=== PATIENT | male | born 1960 | race Caucasian/White ===

== ENCOUNTER 2021-01-17 12:27 | Emergency (ER) | payer MEDICARE ==
--- NOTE | 2021-01-17 12:40 | ERPHSYRPT ---
- History of Present Illness Time Seen by Provider: 01/17/21 12:35 Historian: patient Exam Limitations: no limitations Patient Subjective Stated Complaint: Pt states that he fell off of a ladder yesterday and injured his right ankle and today he feels clammy and fatigued Triage Nursing Assessment: Pt brought to the ER by his , right ankle bru ising to the lateral side, vitals wnl, denies chest pain, denies N&V, pulses and cap refill normal, doesn't appear to be in any distress Physician History: Patient is a 60-year-old male presents to our ED for evaluation of not feeling well. Patient states that he feels clammy and fatigued. Patient has a history of 2 cardiac stents placed in 2013 per patient. Patient denies chest pain. No nausea or vomiting. No diaphoresis. Patient is in no distress. Patient adds that his left ankle is tender. Patient fell off of his ladder yesterday. He was approximately 4 to 6 feet up on his ladder. Patient states he feels comfortable at this time. . Tramadol at 7 AM and again at 10:30 AM. Patient has been taking all medications as prescribed. He voices no other complaints or concerns at this time. Timing/Duration: today Activities at Onset: none Quality: other Location: other (Patient denies chest pain.) Chest Pain Radiation: no radiation Severity of Pain-Max: moderate Severity of Pain-Current: mild Modifying Factors: Improves With: nothing Associated Symptoms: No abdominal pain, No dizziness, No edema Nitro Today/Relief: no nitro taken today Aspirin Treatment Today: no aspirin today Allergies/Adverse Reactions: No Known Drug Allergies Allergy (Verified 01/17/21 12:38) Home Medications: Amitriptyline HCl 25 mg [Elavil 25 mg] 25 mg PO HS 10/17/12 [History] Celecoxib [Celebrex] 200 mg PO DAILY 10/17/12 [History] Albuterol 2.5 mg/3 ml Neb [Proventil 2.5 mg/3 ml Neb] 2 inh PO BID 01/17/21 [History] Albuterol Sulfate [Albuterol Sulfate Hfa] 2 inh PO BID 01/17/21 [History] Aspirin [Aspirin EC] 81 mg PO DAILY 01/17/21 [History] Budesonide/Formoterol Fumarate [Symbicort 160-4.5 Mcg Inhaler] 2 inh PO BID [History] Furosemide 20 mg [Lasix 20 mg] 20 mg PO DAILY 01/17/21 [History] Metoprolol Succinate 12.5 mg PO DAILY 01/17/21 [History] Nitroglycerin 0.4 mg Tablet [Nitrostat 0.4 MG Tablet] 0.4 mg SL UD PRN 01/17/21 [History] Ranolazine 500 MG [Ranexa 500 MG] 500 mg PO BID 01/17/21 [History] Rosuvastatin Calcium [Crestor] 20 mg PO DAILY 01/17/21 [History] Tiotropium [place] [Spiriva Respimat] 2 inh PO DAILY 01/17/21 [History] Hx Tetanus, Diphtheria Vaccination/Date Given: Yes (2 YEARS) Hx Influenza Vaccination/Date Given: Yes Hx Pneumococcal Vaccination/Date Given: Yes Travel Risk - International Travel Have you traveled outside of the country in past 3 weeks: No - Coronavirus Screening Are you exhibiting any of the following symptoms?: No Close contact with a COVID-19 positive Pt in past 14-21 Days: No - Vaccine Status Have you recieved a Covid-19 vaccination: No - Review of Systems Constitutional: No Symptoms, No Fever, No Chills Eyes: No Symptoms Ears, Nose, & Throat: No Symptoms Respiratory: No Symptoms, No Cough, No Dyspnea Cardiac: No Symptoms, No Chest Pain, No Edema, No Syncope Abdominal/Gastrointestinal: No Symptoms, No Abdominal Pain, No Nausea, No Vomiting, No Diarrhea Genitourinary Symptoms: No Symptoms, No Dysuria Musculoskeletal: No Symptoms, No Back Pain, No Neck Pain Skin: No Symptoms, No Rash Neurological: No Symptoms, No Dizziness, No Focal Weakness, No Sensory Changes Psychological: No Symptoms Endocrine: No Symptoms Hematologic/Lymphatic: No Symptoms Immunological/Allergic: No Symptoms All Other Systems: Reviewed and Negative - Past Medical History Pertinent Past Medical History: Yes Neurological History: Seizures ENT History: No Pertinent History Cardiac History: High Cholesterol Respiratory History: Bronchitis Endocrine Medical History: No Pertinent History Musculoskeletal History: Fractures, Rheumatoid Arthritis GI Medical History: Hernia History: Other Psycho-Social History: No Pertinent History Male Reproductive Disorders: No Pertinent History Other Medical History: hx of kidney stones - Past Surgical History Past Surgical History: Yes Neuro Surgical History: No Pertinent History Cardiac: No Pertinent History Respiratory: No Pertinent History Gastrointestinal: Hernia Repair Genitourinary: No Pertinent History Musculoskeletal: Orthopedic Surgery Male Surgical History: No Pertinent History Other Surgical History: KNEE SURGERY, ROTOTR CUFF X4. - Social History Smoking Status: Former smoker How long have you smoked: 30 years Exposure to second hand smoke: No Drug Use: none Patient Lives Alone: No - Nursing Vital Signs Nursing Vital Signs: Initial Vital Signs Temperature 96.3 F 01/17/21 12:28 Pulse Rate 74 01/17/21 12:28 Blood Pressure 115/76 01/17/21 12:28 O2 Sat by Pulse Oximetry 97 01/17/21 12:28 Pain Scale Pain Intensity 7 - Physical Exam General Appearance: no apparent distress, alert Eye Exam: PERRL/EOMI, eyes nml inspection Ears, Nose, Throat Exam: normal ENT inspection, moist mucous membranes Neck Exam: normal inspection, non-tender, supple, full range of motion Respiratory Exam: normal breath sounds, lungs clear, No respiratory distress Cardiovascular Exam: regular rate/rhythm, normal heart sounds Gastrointestinal/Abdomen Exam: soft, No tenderness, No mass Back Exam: normal inspection, No CVA tenderness, No vertebral tenderness Extremity Exam: other (Right ankle is swollen circumferentially. It is tender primarily at the medial aspect. Cap refill less than 2 seconds. PT DP pulse palpable. Compartments are soft. No knee hip or back pain. No other injuries reported.) Neurologic Exam: alert, oriented x 3, cooperative, normal mood/affect, sensation nml, No motor deficits Skin Exam: normal color, warm, dry Lymphatic Exam: adenopathy SpO2 Interpretation: normal SpO2: 97 O2 Delivery: Room Air - Course Nursing assessment & vital signs reviewed: Yes EKG Interpreted by Me: RATE (68), Sinus Rhythm, NORMAL AXIS, NORMAL INTERVALS - Radiology Exams Ankle X-ray Interpretation: Teleradiologist Report (Right ankle demonstrates nondisplaced lateral malleolus tip avulsion fracture with marked soft tissue swelling. Incidental tiny heel spur no other bony articular or soft tissue abnormalities.) Chest X-ray Interpretation: Teleradiologist Report (Clear lungs. Hyperinflated. Inc idental calcified granuloma. Borderline cardiomegaly. Bony thorax intact with mild double curvature scoliosis. Nonacute chest with chronic features.) Ordered Tests: Active Orders 24 hr Category Date Time Status Chemist Steroids STAT Care 01/17/21 12:43 Active Cold Application STAT Care 01/17/21 12:44 Active EKG-ER Only STAT Care 01/17/21 12:36 Active IV Insertion STAT Care 01/17/21 12:36 Active ANKLE (3 VIEWS) Stat Exams 01/17/21 12:46 Completed CHEST 1 VIEW (PORTABLE) Stat Exams 01/17/21 12:37 Completed CBC W DIFF Stat Lab 01/17/21 12:45 Completed CMP Stat Lab 01/17/21 12:45 Completed TROPONIN Q3H Lab 01/17/21 12:45 Completed TROPONIN Q3H Lab 01/17/21 15:20 Completed TROPONIN Q3H Lab 01/17/21 18:45 Ordered TROPONIN Q3H Lab 01/17/21 21:45 Ordered TROPONIN Q3H Lab 01/18/21 00:45 Ordered Urine Triage Profile Stat Lab 01/17/21 14:13 Completed Medication Summary Discontinued Medications Generic Name Dose Route Start Last Admin Trade Name Freq PRN Reason Stop Dose Admin Sodium Chloride 1,000 mls @ 999 mls/hr 01/17/21 14:02 01/17/21 15:10 Sodium Chloride 0.9% 1000 Ml IV 01/17/21 15:02 Infused .Q1H1M STA Infusion Sodium Chloride Confirm 01/17/21 14:04 Sodium Chloride 0.9% 1000 Ml Administered 01/17/21 14:05 Dose 1,000 mls @ ud .ROUTE .STK-MED ONE Ketorolac Tromethamine 30 mg 01/17/21 16:14 01/17/21 16:21 Toradol 30 Mg Injection IM 01/17/21 16:15 30 mg STAT ONE Administration Ketorolac Tromethamine Confirm 01/17/21 16:18 Toradol 30 Mg Injection Administered 01/17/21 16:19 Dose 30 mg .ROUTE .STK-MED ONE Lab/Rad Data: Laboratory Result Diagrams 01/17/21 12:45 01/17/21 12:45 Laboratory Results 01/17/21 01/17/21 01/17/21 Range/Units 15:20 14:13 12:45 WBC (4.0-10.5) K/mm3 RBC (4.1-5.6) M/mm3 Hgb (12.5-18.0) gm/dl Hct (42-50) % MCV (78-100) fl MCH (26-32) pg MCHC (32-36) g/dl RDW (11.5-14.0) % Plt Count (150-450) K/mm3 MPV (7.5-11.0) fl Gran % (36.0-66.0) % Eos # (Auto) (0-0.5) Absolute Lymphs (auto) (1.0-4.6) Absolute Monos (auto) (0.0-1.3) Lymphocytes % (24.0-44.0) % Monocytes % (0.0-12.0) % Eosinophils % (0.00-5.0) % Basophils % (0.0-0.4) % Absolute Granulocytes (1.4-6.9) Basophils # (0-0.4) Sodium (137-145) mmol/L Potassium (3.5-5.1) mmol/L Chloride (98-107) mmol/L Carbon Dioxide (22-30) mmol/L Anion Gap (5-15) MEQ/L BUN (9-20) mg/dL Creatinine (0.66-1.25) mg/dL Estimated GFR ML/MIN Glucose (74-106) mg/dL Calcium (8.4-10.2) mg/dL Total Bilirubin (0.2-1.3) mg/dL AST (17-59) U/L ALT (0-50) U/L Alkaline Phosphatase (38-126) U/L Troponin I < 0.012 < 0.012 (0.000-0.034) ng/mL Serum Total Protein (6.3-8.2) g/dL Albumin (3.5-5.0) g/dL Urine Opiates Level NEGATIVE (NEGATIVE) Ur Methadone NEGATIVE (NEGATIVE) Urine Barbiturates NEGATIVE (NEGATIVE) Ur Phencyclidine (PCP) NEGATIVE (NEGATIVE) Urine Amphetamine NEGATIVE (NEGATIVE) U Benzodiazepine Level NEGATIVE (NEGATIVE) Urine Cocaine NEGATIVE (NEGATIVE) Urine Marijuana (THC) NEGATIVE (NEGATIVE) 01/17/21 01/17/21 Range/Units 12:45 12:45 WBC 9.3 (4.0-10.5) K/mm3 RBC 4.55 (4.1-5.6) M/mm3 Hgb 14.7 (12.5-18.0) gm/dl Hct 44.6 (42-50) % MCV 98.0 (78-100) fl MCH 32.3 H (26-32) pg MCHC 33.0 (32-36) g/dl RDW 12.3 (11.5-14.0) % Plt Count 186 (150-450) K/mm3 MPV 9.6 (7.5-11.0) fl Gran % 69.8 H (36.0-66.0) % Eos # (Auto) 0.08 (0-0.5) Absolute Lymphs (auto) 1.58 (1.0-4.6) Absolute Monos (auto) 1.14 (0.0-1.3) Lymphocytes % 16.9 L (24.0-44.0) % Monocytes % 12.2 H (0.0-12.0) % Eosinophils % 0.9 (0.00-5.0) % Basophils % 0.2 (0.0-0.4) % Absolute Granulocytes 6.52 (1.4-6.9) Basophils # 0.02 (0-0.4) Sodium 135 L (137-145) mmol/L Potassium 4.3 (3.5-5.1) mmol/L Chloride 100 (98-107) mmol/L Carbon Dioxide 26 (22-30) mmol/L Anion Gap 13.3 (5-15) MEQ/L BUN 14 (9-20) mg/dL Creatinine 1.31 H (0.66-1.25) mg/dL Estimated GFR 59.7 ML/MIN Glucose 76 (74-106) mg/dL Calcium 9.0 (8.4-10.2) mg/dL Total Bilirubin 0.50 (0.2-1.3) mg/dL AST 38 (17-59) U/L ALT 31 (0-50) U/L Alkaline Phosphatase 79 (38-126) U/L Troponin I (0.000-0.034) ng/mL Serum Total Protein 7.1 (6.3-8.2) g/dL Albumin 4.6 (3.5-5.0) g/dL Urine Opiates Level (NEGATIVE) Ur Methadone (NEGATIVE) Urine Barbiturates (NEGATIVE) Ur Phencyclidine (PCP) (NEGATIVE) Urine Amphetamine (NEGATIVE) U Benzodiazepine Level (NEGATIVE) Urine Cocaine (NEGATIVE) Urine Marijuana (THC) (NEGATIVE) - Progress Progress: improved Air Movement: good Progress Note: Troponin negative x2. EKG normal sinus rhythm. Chest x-ray negative for acute pathology. X-ray right ankle reveals a small lateral malleolus avulsion fracture. Patient placed in a walking boot. Patient declined crutches as he has crutches at home. Patient referred to orthopedics clinic. Patient declined pain medication. Patient agrees to follow-up with his primary care doctor within 48 hours for reevaluation. 01/17/21 16:08 Blood Culture(s) Obtained: No Antibiotics given: No Counseled pt/family regarding: lab results, diagnosis, need for follow-up, rad results - Departure Departure Disposition: Home Clinical Impression: Fractured lateral malleolus, Heel spur, Ankle swelling, Calcified granuloma of lung, Cardiomegaly, Scoliosis, Elevated serum creatinine Condition: Stable Critical Care Time: No Referrals: GERMAIN RAJPUT MD [Primary Care Provider] - Instructions: Ankle Fracture (DC) Prescriptions: Ketorolac Tromethamine [Toradol] 10 mg PO TID 5 Days #15 tablet Outpatient Orders: Ortho Referral Time Frame: 1 Day, Facility: [facility], Location: ORTHO CLINIC
--- NOTE | 2021-01-17 13:00 | XRAY ---
Indication: Pain following fall. Comparison: None 3 view right ankle demonstrates nondisplaced lateral malleolus tip avulsion fracture with marked soft tissue swelling. Incidental tiny heel spurs. No other bony, articular, or soft tissue abnormalities.
--- NOTE | 2021-01-17 13:00 | XRAY ---
Indication: Chest pain. Comparison: April 13, 2020. Portable chest less inflated and clear again with incidental calcified granulomas. Heart borderline enlarged. Bony thorax intact again with mild double curvature scoliosis. Impression: Nonacute chest with chronic features.
[2021-01-17 13:09] LABS: ALBUMIN 4.6 g/dL (3.5-5.0); ANION GAP 13.3 MEQ/L (5-15); BILIRUBIN,TOTAL 0.5 mg/dL (0.2-1.3); Creatinine 1 1.31 mg/dL (0.66-1.25); EST GLOMERULAR FILTRATION RATE 59.7 ML/MIN; Potassium 4.3 mmol/L (3.5-5.1); Total Protein 7.1 g/dL (6.3-8.2)
[2021-01-17 13:13] LABS: Absolute Neutrophil Ct (ANC) 6.52 (1.4-6.9); BASOPHIL % 0.2 % (0.0-0.4); Basophil (Absolute #) 0.02 (0-0.4); Eosinophil % 0.9 % (0.00-5.0); Eosinophil (Absolute #) 0.08 (0-0.5); Hematocrit 44.6 % (42-50); Hemoglobin 14.7 gm/dl (12.5-18.0); Lymphocyte (Absolute #) 1.58 (1.0-4.6); Lymphocytes % 16.9 % (24.0-44.0); Mean Corpuscular Hemoglobin 32.3 pg (26-32); Mean Platelet Volume 9.6 fl (7.5-11.0); Monocyte (Absolute #) 1.14 (0.0-1.3); Monocytes % 12.2 % (0.0-12.0); Neutrophil % 69.8 % (36.0-66.0); Platelet Count 186 K/mm3 (150-450); Red Blood Count 4.55 M/mm3 (4.1-5.6); Red Cell Distribution Width 12.3 % (11.5-14.0); White Blood Count 9.3 K/mm3 (4.0-10.5)
[2021-01-17] MEDS ORDERED: Sodium Chloride 0.9% 1000 ML 1,000 ML IV STA (14:02)
[2021-01-17] MEDS ORDERED: Sodium Chloride 0.9% 1000 ML 1,000 ML ONE (14:04)
[2021-01-17 14:51] LABS: Amphetamine,Urine NEGATIVE (NEGATIVE); Barbiturate,Urine NEGATIVE (NEGATIVE); Benzodiazepine,Urine NEGATIVE (NEGATIVE); Cocaine,Urine NEGATIVE (NEGATIVE); Methadone,Urine NEGATIVE (NEGATIVE); Opiate,Urine NEGATIVE (NEGATIVE); PCP,Urine NEGATIVE (NEGATIVE); THC,Urine NEGATIVE (NEGATIVE)
[2021-01-17 16:09] VITALS: BP 126/89; PULSE 74
[2021-01-17 16:11] VITALS: O2SAT 97
[2021-01-17] MEDS ORDERED: TORAdol 30 mg Injection IM ONE (16:14)
[2021-01-17] MEDS ORDERED: TORAdol 30 mg Injection ONE (16:18)
== END 2021-01-17 16:40 | disposition home or self-care (01) ==
LOC: ED 12:27
DX: S63.617A Unspecified sprain of left little finger, initial encounter (principal); M77.30 Calcaneal spur, unspecified foot; M25.471 Effusion, right ankle; J84.10 Pulmonary fibrosis, unspecified; I51.7 Cardiomegaly
CPT/HCPCS: 36000; 36415; 71045; 73610; 80053; 80307; 84484; 85025; 93005; 93041; 96360; 96372; 99284; J1885; L4386

== ENCOUNTER 2021-07-18 11:48 | Inpatient (IN) | payer MEDICARE ==
[2021-07-18] MEDS ORDERED: DECADRON 10MG INJ. IV ONE (12:14)
--- NOTE | 2021-07-18 12:40 | XRAY ---
Indication: Cough. Comparison: January 17, 2021. Portable chest demonstrates new moderate diffuse bilateral patchy airspace disease without consolidation/large effusion. Remaining heart and bony thorax unremarkable.
[2021-07-18] MEDS ORDERED: DECADRON 10MG INJ. ONE (12:59)
[2021-07-18 13:02] LABS: Absolute Neutrophil Ct (ANC) 3.44 (1.4-6.9); Basophil (Absolute #) 0 (0-0.4); Eosinophil (Absolute #) 0 (0-0.5); Hematocrit 46.6 % (42-50); Hemoglobin 15.6 gm/dl (12.5-18.0); Lymphocyte (Absolute #) 0.54 (1.0-4.6); Lymphocytes % 12.9 % (24.0-44.0); Mean Cell Volume 98.1 fl (78-100); Mean Corpuscular Hemoglobin 32.8 pg (26-32); Mean Corpuscular Hgb Concent. 33.5 g/dl (32-36); Mean Platelet Volume 9.4 fl (7.5-11.0); Monocytes % 4.8 % (0.0-12.0); Neutrophil % 82.3 % (36.0-66.0); Platelet Count 147 K/mm3 (150-450); Red Blood Count 4.75 M/mm3 (4.1-5.6); Red Cell Distribution Width 12.5 % (11.5-14.0); White Blood Count 4.2 K/mm3 (4.0-10.5)
[2021-07-18 13:12] LABS: ALBUMIN 3.9 g/dL (3.5-5.0); ALKALINE PHOSPHATASE 69 U/L (38-126); ANION GAP 14.7 MEQ/L (5-15); BLOOD UREA NITROGEN 18 mg/dL (9-20); CHLORIDE 99 mmol/L (98-107); Calcium 8.7 mg/dL (8.4-10.2); Carbon Dioxide 28 mmol/L (22-30); Creatinine 1 1.14 mg/dL (0.66-1.25); EST GLOMERULAR FILTRATION RATE > 60.0 ML/MIN; Glucose 130 mg/dL (74-106); Potassium 3.6 mmol/L (3.5-5.1); SGOT/AST 61 U/L (17-59); SGPT/ALT 54 U/L (0-50); SODIUM 138 mmol/L (137-145); Total Protein 6.7 g/dL (6.3-8.2)
--- NOTE | 2021-07-18 13:56 | ERPHSYRPT ---
- History of Present Illness Time Seen by Provider: 07/18/21 12:15 Source: patient Exam Limitations: no limitations Patient Subjective Stated Complaint: Pt c/o of feeling sick for the past week, headache, body aches, fatigue, neck pain, diarrhea, sob, cough, positive covid test Triage Nursing Assessment: Pt brought by to the ER, hypoxic, rates head pain as 2/10, short of breath when he tries to speak, neck pain, body fatigue, diarrhea, last intake was a couple of bites of a sandwich this morning but has barely eaten all week, 3-4 water bottles daily, pulses normal, skin pale/warm/dry, hx of copd and cardiac stents Physician History: Patient is a 61-year-old male presents to our ED with complaints of generalized body aches fatigue shortness of breath and diarrhea. Patient states he tested positive for Covid on a home test. Patient believes he has Covid. Patient symptoms have been ongoing for 1 week. Symptoms are progressive. Symptoms are moderate in intensity. Patient has a history of COPD. Patient admits to having cardiac stents as well. Fatigue and shortness of breath is worse with exertion. Symptoms improved with rest. Patient took Tylenol and self treated himself with albuterol today at 9 AM. Patient states that his oral intake has decreased. However he is trying to hydrate himself with bottled water. Patient denies chest pain. No nausea or vomiting. Patient voices no other complaints or concerns at this time. Timing/Duration: week(s) (1 week) Activities at Onset: none Severity of Dyspnea-Max: moderate Severity of Dyspnea-Current: mild Allergies/Adverse Reactions: No Known Drug Allergies Allergy (Verified 07/18/21 12:13) Home Medications: Albuterol Sulfate [Albuterol Sulfate Hfa] 2 inh PO BID 01/17/21 [History] Aspirin [Aspirin EC] 81 mg PO DAILY 01/17/21 [History] Celecoxib [Celebrex] 200 mg PO DAILY 07/18/21 [History] Furosemide 20 mg [Lasix 20 mg] 20 mg PO DAILY 07/18/21 [History] Hydroxyzine HCl 25 mg [Atarax 25 mg] 25 mg PO DAILY 07/18/21 [History] Metoprolol Tartrate 25 mg [Lopressor 25MG Tab] 25 mg PO DAILY 07/18/21 [History] Ranolazine [Ranolazine ER] 500 mg PO BID 07/18/21 [History] Rosuvastatin Calcium [Crestor] 20 mg PO DAILY 07/18/21 [History] Hx Tetanus, Diphtheria Vaccination/Date Given: Yes (2 YEARS) Hx Influenza Vaccination/Date Given: Yes Hx Pneumococcal Vaccination/Date Given: Yes Travel Risk - International Travel Have you traveled outside of the country in past 3 weeks: No - Coronavirus Screening Are you exhibiting any of the following symptoms?: Yes Symptoms: Cough: New Onset, Shortness of Breath, Vomiting/Diarrhea, Headaches/Body Aches/Fatigue - Vaccine Status Have you recieved a Covid-19 vaccination: No - Review of Systems Constitutional: No Symptoms, No Fever, No Chills Eyes: No Symptoms Ears, Nose, & Throat: No Symptoms Respiratory: No Symptoms, No Cough, No Dyspnea Cardiac: No Symptoms, No Chest Pain, No Edema, No Syncope Abdominal/Gastrointestinal: No Symptoms, No Abdominal Pain, No Nausea, No Vomiting, No Diarrhea Genitourinary Symptoms: No Symptoms, No Dysuria Musculoskeletal: No Symptoms, No Back Pain, No Neck Pain Skin: No Symptoms, No Rash Neurological: No Symptoms, No Dizziness, No Focal Weakness, No Sensory Changes Psychological: No Symptoms Endocrine: No Symptoms Hematologic/Lymphatic: No Symptoms Immunological/Allergic: No Symptoms All Other Systems: Reviewed and Negative - Past Medical History Pertinent Past Medical History: Yes Neurological History: Seizures ENT History: No Pertinent History Cardiac History: Myocardial Infarction ([place]) Respiratory History: COPD, Emphysema Endocrine Medical History: No Pertinent History Musculoskeletal History: Rheumatoid Arthritis GI Medical History: Hernia History: Other Psycho-Social History: No Pertinent History Male Reproductive Disorders: No Pertinent History Other Medical History: PT HAS HAD [place], 2 TKA - Past Surgical History Past Surgical History: Yes Neuro Surgical History: No Pertinent History Cardiac: No Pertinent History, Cardiac Stent Respiratory: No Pertinent History Gastrointestinal: Hernia Repair Genitourinary: No Pertinent History Musculoskeletal: Orthopedic Surgery Male Surgical History: No Pertinent History Other Surgical History: KNEE SURGERY, ROTOTR CUFF X4. - Social History Smoking Status: Former smoker How long have you smoked: 30 years Exposure to second hand smoke: No Drug Use: none Patient Lives Alone: No - Nursing Vital Signs Nursing Vital Signs: Initial Vital Signs Temperature 98.6 F 07/18/21 12:04 Pulse Rate 81 07/18/21 12:04 Respiratory Rate 20 07/18/21 12:04 Blood Pressure 113/73 07/18/21 12:04 O2 Sat by Pulse Oximetry 92 L 07/18/21 12:04 Pain Scale Pain Intensity 2 - Physical Exam General Appearance: no apparent distress, alert Eye Exam: PERRL/EOMI, eyes nml inspection, No scleral icterus, No pale conju nctivae Ears, Nose, Throat Exam: hearing grossly normal, normal ENT inspection, normal pharynx Neck Exam: normal inspection, supple, full range of motion, No non-tender Respiratory Exam: diminished breath sounds, No accessory muscle use (Dry cough observed), No crackles/rales Cardiovascular/Chest Exam: normal heart sounds, regular rate/rhythm Abdominal/Gastrointestinal Exam: soft, normal bowel sounds, No tenderness, No distention, No mass, No guarding Extremity Exam: non-tender, normal range of motion, normal inspection, no calf tenderness, no pedal edema Neurologic Exam: alert, oriented x 3, cooperative, 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 Remaining heart and bony thorax unremarkable.) Ordered Tests: Active Orders 24 hr Category Date Time Status Traffic Incident Management Manager STAT Care 07/18/21 12:10 Active EKG-ER Only STAT Care 07/18/21 12:09 Active IV Insertion STAT Care 07/18/21 12:09 Active Pulse Oximetry (ED) STAT Care 07/18/21 12:09 Active CHEST 1 VIEW (PORTABLE) Stat Exams 07/18/21 12:10 Completed BLOOD CULTURE Stat Lab 07/18/21 12:41 Received CBC W DIFF Stat Lab 07/18/21 12:41 Completed CMP Stat Lab 07/18/21 12:41 Completed TROPONIN Q3H Lab 07/18/21 12:41 Completed TROPONIN Q3H Lab 07/18/21 15:15 Completed TROPONIN Q3H Lab 07/18/21 18:15 Ordered TROPONIN Q3H Lab 07/18/21 21:15 Ordered TROPONIN Q3H Lab 07/19/21 00:15 Ordered Transfer Order Routine Transfer 07/18/21 Ordered Medication Summary Discontinued Medications Generic Name Dose Route Start Last Admin Trade Name Kwesiq PRN Reason Stop Dose Admin Dexamethasone Sodium Phosphate 8 mg 07/18/21 12:14 07/18/21 13:00 Dexamethasone Sod Phosphate 10 Mg/Ml IV 07/18/21 12:15 8 mg STAT ONE Administration Dexamethasone Sodium Phosphate Confirm 07/18/21 12:59 Dexamethasone Sod Phosphate 10 Mg/Ml Administered 07/18/21 13:00 Dose 10 mg .ROUTE .STK-MED ONE Enoxaparin Sodium 100 mg 07/18/21 14:04 07/18/21 14:34 Enoxaparin Sodium 100 Mg/Ml Syringe 1 mg/kg (100 mg) 07/18/21 14:05 100 mg SQ Administration ONCE STA Enoxaparin Sodium Confirm 07/18/21 14:31 Enoxaparin Sodium 120 Mg/0.8 Ml Syringe Administered 07/18/21 14:32 Dose 120 mg SQ .STK-MED ONE Ceftriaxone Sodium/Dextrose 2 g in 50 mls @ 100 mls/hr 07/18/21 14:03 07/18/21 15:19 Rocephin 2 Gm-D5w 50ml Bag IV 07/18/21 14:32 Infused STAT STA Infusion Azithromycin 500 mg in 250 mls @ 250 mls/hr 07/18/21 14:03 07/18/21 15:10 Zithromax 500 Mg/ 250 Ml Nacl Premix IV 07/18/21 15:02 250 ml/hr STAT STA 250 mls/hr Administration Ceftriaxone Sodium/Dextrose Confirm 07/18/21 14:29 Rocephin 2 Gm-D5w 50ml Bag Administered 07/18/21 14:30 Dose 2 g in 50 mls @ ud IV .STK-MED ONE Azithromycin Confirm 07/18/21 15:07 Zithromax 500 Mg/ 250 Ml Nacl Premix Administered 07/18/21 15:08 Dose 500 mg in 250 mls @ ud IV .STK-MED ONE Lab/Rad Data: Laboratory Result Diagrams 07/18/21 12:41 07/18/21 12:41 Laboratory Results 07/18/21 07/18/21 07/18/21 Range/Units 15:15 14:49 12:41 WBC (4.0-10.5) K/mm3 RBC (4.1-5.6) M/mm3 Hgb (12.5-18.0) gm/dl Hct (42-50) % MCV (78-100) fl MCH (26-32) pg MCHC (32-36) g/dl RDW (11.5-14.0) % Plt Count (150-450) K/mm3 MPV (7.5-11.0) fl Gran % (36.0-66.0) % Eos # (Auto) (0-0.5) Absolute Lymphs (auto) (1.0-4.6) Absolute Monos (auto) (0.0-1.3) Lymphocytes % (24.0-44.0) % Monocytes % (0.0-12.0) % Eosinophils % (0.00-5.0) % Basophils % (0.0-0.4) % Absolute Granulocytes (1.4-6.9) Basophils # (0-0.4) Sodium (137-145) mmol/L Potassium (3.5-5.1) mmol/L Chloride (98-107) mmol/L Carbon Dioxide (22-30) mmol/L Anion Gap (5-15) MEQ/L BUN (9-20) mg/dL Creatinine (0.66-1.25) mg/dL Estimated GFR ML/MIN Glucose (74-106) mg/dL Calcium (8.4-10.2) mg/dL Total Bilirubin (0.2-1.3) mg/dL AST (17-59) U/L ALT (0-50) U/L Alkaline Phosphatase (38-126) U/L Troponin I < 0.012 < 0.012 (0.000-0.034) ng/mL Serum Total Protein (6.3-8.2) g/dL Albumin (3.5-5.0) g/dL SARS-CoV-2 (PCR) POSITIVE A (NEGATIVE) Slides for Path Review 07/18/21 07/18/21 Range/Units 12:41 12:41 WBC 4.2 (4.0-10.5) K/mm3 RBC 4.75 (4.1-5.6) M/mm3 Hgb 15.6 (12.5-18.0) gm/dl Hct 46.6 (42-50) % MCV 98.1 (78-100) fl MCH 32.8 H (26-32) pg MCHC 33.5 (32-36) g/dl RDW 12.5 (11.5-14.0) % Plt Count 147 L (150-450) K/mm3 MPV 9.4 (7.5-11.0) fl Gran % 82.3 H (36.0-66.0) % Eos # (Auto) 0 (0-0.5) Absolute Lymphs (auto) 0.54 L (1.0-4.6) Absolute Monos (auto) 0.20 (0.0-1.3) Lymphocytes % 12.9 L (24.0-44.0) % Monocytes % 4.8 (0.0-12.0) % Eosinophils % 0.0 (0.00-5.0) % Basophils % 0.0 (0.0-0.4) % Absolute Granulocytes 3.44 (1.4-6.9) Basophils # 0 (0-0.4) Sodium 138 (137-145) mmol/L Potassium 3.6 (3.5-5.1) mmol/L Chloride 99 (98-107) mmol/L Carbon Dioxide 28 (22-30) mmol/L Anion Gap 14.7 (5-15) MEQ/L BUN 18 (9-20) mg/dL Creatinine 1.14 (0.66-1.25) mg/dL Estimated GFR > 60.0 ML/MIN Glucose 130 H (74-106) mg/dL Calcium 8.7 (8.4-10.2) mg/dL Total Bilirubin 0.50 (0.2-1.3) mg/dL AST 61 H (17-59) U/L ALT 54 H (0-50) U/L Alkaline Phosphatase 69 (38-126) U/L Troponin I (0.000-0.034) ng/mL Serum Total Protein 6.7 (6.3-8.2) g/dL Albumin 3.9 (3.5-5.0) g/dL SARS-CoV-2 (PCR) (NEGATIVE) Slides for Path Review YES - Progress Progress: improved Air Movement: good Progress Note: Patient reassessed. He is resting comfortably. Chest x-ray reveals Covid pneumonia. Patient is hypoxic currently on oxygen via nasal cannula. Patient tested positive for Covid. Case discussed with Dr. Hall who advises a dose of remdesivir Decadron and Lovenox. Patient will be admitted to the Covid unit. Plan of care discussed with patient. He agrees to admission [facility] for further evaluation and treatment. Patient voices no other complaints or concerns at this time. Portions of this note were created with voice recognition technology. There may be grammatical, spelling, punctuation or sound alike errors 07/18/21 15:58 Blood Culture(s) Obtained: Yes Antibiotics given: Yes Discussed with Dr.: Other (florian) Will see patient in: hospital (observation) Counseled pt/family regarding: lab results, diagnosis, rad results - Departure Departure Disposition: Observation Clinical Impression: Pneumonia due to COVID-19 virus, Hypoxia Condition: Stable Critical Care Time: No Referrals: GERMAIN RAJPUT MD [Primary Care Provider] - Follow up/PCP as directed
[2021-07-18] MEDS ORDERED: Zithromax 500 MG/ 250 ML NaCl Premix 500 MG/250 ML IVPB IV STA (14:03)
[2021-07-18] MEDS ORDERED: ROCEPHIN 2 Gm-D5w 50ML BAG** 2 G/50 ML IVPB IV STA (14:03)
[2021-07-18] MEDS ORDERED: ENOXAPARIN SODIUM SQ STA (14:04)
[2021-07-18] MEDS ORDERED: ROCEPHIN 2 Gm-D5w 50ML BAG** 2 G/50 ML IVPB IV ONE (14:29)
[2021-07-18] MEDS ORDERED: ENOXAPARIN SODIUM SQ ONE (14:31)
[2021-07-18 14:37] LABS: Slide Review 1 YES
[2021-07-18] MEDS ORDERED: Zithromax 500 MG/ 250 ML NaCl Premix 500 MG/250 ML IVPB IV ONE (15:07)
[2021-07-18] MEDS ORDERED: REMDESIVIR 200 MG in Sodium Chloride 0.9% 250 ML 250 ML IV ONE (17:05)
[2021-07-18] MEDS ORDERED: TYLENOL EXTRA STRENGTH 500 MG PO PRN (19:48)
[2021-07-18] MEDS ORDERED: Zofran 4 MG/2 ML VIAL IV PRN (19:49)
[2021-07-18] MEDS: Ativan 1 MG PO PRN (21:23)
[2021-07-18] MEDS: HYDROCODONE-CHLORPHEN ER SUSP PO PRN (21:23)
[2021-07-18] MEDS ORDERED: ZOCOR 20MG PO ONE (22:00)
[2021-07-18] MEDS ORDERED: ECOTRIN 81 MG PO ONE (22:00)
[2021-07-18] MEDS ORDERED: Ranexa 500 MG PO ONE (22:00)
[2021-07-18] MEDS ORDERED: DESYREL 50 MG PO ONE (22:00)
[2021-07-18] MEDS: VENTOLIN COMMON CANISTER IH PRN (22:10)
[2021-07-19 05:39] LABS: Absolute Neutrophil Ct (ANC) 2.56 (1.4-6.9); BASOPHIL % 0.3 % (0.0-0.4); Basophil (Absolute #) 0.01 (0-0.4); Eosinophil (Absolute #) 0 (0-0.5); Hematocrit 45.3 % (42-50); Hemoglobin 14.9 gm/dl (12.5-18.0); Lymphocyte (Absolute #) 0.62 (1.0-4.6); Lymphocytes % 17.7 % (24.0-44.0); Mean Cell Volume 98.3 fl (78-100); Mean Corpuscular Hemoglobin 32.3 pg (26-32); Mean Corpuscular Hgb Concent. 32.9 g/dl (32-36); Mean Platelet Volume 9.7 fl (7.5-11.0); Monocyte (Absolute #) 0.32 (0.0-1.3); Monocytes % 9.1 % (0.0-12.0); Neutrophil % 72.9 % (36.0-66.0); Platelet Count 159 K/mm3 (150-450); Red Blood Count 4.61 M/mm3 (4.1-5.6); Red Cell Distribution Width 12.1 % (11.5-14.0); White Blood Count 3.5 K/mm3 (4.0-10.5)
[2021-07-19 06:04] LABS: ALBUMIN 3.8 g/dL (3.5-5.0); ALKALINE PHOSPHATASE 64 U/L (38-126); BLOOD UREA NITROGEN 17 mg/dL (9-20); CHLORIDE 101 mmol/L (98-107); Calcium 8.8 mg/dL (8.4-10.2); Carbon Dioxide 27 mmol/L (22-30); Creatinine 1 0.85 mg/dL (0.66-1.25); EST GLOMERULAR FILTRATION RATE > 60.0 ML/MIN; Glucose 131 mg/dL (74-106); Potassium 4.2 mmol/L (3.5-5.1); SGOT/AST 56 U/L (17-59); SGPT/ALT 51 U/L (0-50); SODIUM 138 mmol/L (137-145); Total Protein 6.6 g/dL (6.3-8.2)
[2021-07-19] MEDS: PATIENT OWN MEDICATION IH SCH ×2 (08:18→22:09)
[2021-07-19] MEDS: VENTOLIN COMMON CANISTER IH PRN ×2 (08:18→22:09)
[2021-07-19] MEDS: celeBREX 100 MG PO SCH (09:09)
[2021-07-19] MEDS: DECADRON 10MG INJ. IV SCH (09:09)
[2021-07-19] MEDS: Lopressor 25MG Tab PO SCH (09:10)
[2021-07-19] MEDS: ENOXAPARIN SODIUM SQ SCH (09:10)
[2021-07-19] MEDS: LASIX 20 MG PO SCH (09:11)
[2021-07-19] MEDS: OLUMIANT PO SCH (09:11)
[2021-07-19] MEDS: HYDROCODONE-CHLORPHEN ER SUSP PO PRN ×2 (09:12→21:18)
[2021-07-19] MEDS: Ranexa 500 MG PO SCH ×2 (09:12→22:22)
[2021-07-19] MEDS ORDERED: NON-FORMULARY ITEM (Budesonide/Glycopyr/Formoterol [Breztri Aerosphere Inhaler] 10.7 GM Hf IH SCH (10:00)
[2021-07-19] MEDS ORDERED: NON-FORMULARY ITEM (Celecoxib [Celebrex] 200 MG Capsule) PO SCH (10:00)
[2021-07-19] MEDS ORDERED: Nitrostat 0.4 MG Tablet SL PRN (10:07)
[2021-07-19 10:30] LABS: Hematocrit 42.8 % (42-50); Hemoglobin 14.3 gm/dl (12.5-18.0); Mean Cell Volume 97.5 fl (78-100); Mean Corpuscular Hemoglobin 32.6 pg (26-32); Mean Corpuscular Hgb Concent. 33.4 g/dl (32-36); Mean Platelet Volume 9.2 fl (7.5-11.0); Platelet Count 159 K/mm3 (150-450); Red Blood Count 4.39 M/mm3 (4.1-5.6); White Blood Count 3.6 K/mm3 (4.0-10.5)
[2021-07-19] MEDS ORDERED: PHARMACY DOSING REQUIRED: VANCOMYCIN IV STA (11:21)
--- NOTE | 2021-07-19 11:45 | HP ---
CHIEF COMPLAINT: Chest pain, shortness of breath, headache, weakness all over and a positive COVID test this afternoon. HISTORY OF PRESENT ILLNESS: The patient was brought to the emergency room by his who said he has been getting worse with headache, shortness of breath when he tries to speak or walk. He has not eaten all week, only drinking water and just feels terrible. His COVID was positive on a home test a week ago and was reconfirmed here. VACCINES: None. CORONAVIRUS SCREENING: Exposures - None that he knows of, not for sure where he could have gotten it. MEDICATIONS: Albuterol 2 puffs every 4 hours, aspirin 81 q.d., Celebrex 200 q.d., Lasix 20 q.d., Atarax 25 mg h.s. for anxiety and hyperventilating, metoprolol 25 mg h.s., Ranolazine Extended Release 500 mg 1 b.i.d., Crestor 20 q.d. ALLERGIES: NKDA. PAST MEDICAL HISTORY: He has a history of stents placed for a myocardial infarction several years ago. He is followed by Dr. Newell. His cholesterol has changed adequately since he has been medication and a lot of the lesions have dissipated they claim. PAST SURGICAL HISTORY: Knee surgery. Rotator cuff surgery multiple times. REVIEW OF SYSTEMS: HEENT: No problems hearing or seeing. No loss of taste. RESPIRATORY: Shortness of breath, frequent cough, ex-smoker quit ten years ago. CVS: He has chest pain occasionally, none now, usually when he is hyperventilating he states when he tries to sleep. He has had no increased edema. No syncope. PSYCH: No problems. ENDOCRINE: No history of diabetes or hypertension. NEUROLOGIC: Seizures, none recently. Rheumatoid arthritis especially in the MIP joints of his hands. PHYSICAL EXAMINATION: The patient is alert, orientated on oxygen in no distress. VITAL SIGNS: Temperature 96F, pulse 81, respiratory rate 20, blood pressure 120/70. O2 saturation on 2 liters was 92%. GENERAL: The patient is alert, orientated and in no distress, very talkative. HEENT: Pupils equal and reactive to light. NECK: Supple without adenopathy or JVD. CHEST: Diminished breath sounds. CVS: Regular rate. No murmurs or gallops. ABDOMEN: Soft. No tenderness. No masses. EXTREMITIES: No edema. Swelling over the knees. Swelling over MIP joints of both hands. SKIN: Normal. IMPRESSION: The patient has COVID pneumonia when interpreted to his x-ray along with his symptoms and tests. He has mild hypoxia. High risk of cardiac events. PLAN: The patient will be treated with Remdesivir, Decadron, anticoagulation and antibodies. PROGNOSIS: Good.
[2021-07-19] MEDS: VANCOMYCIN 1 GRAM/200 ML BAG 1 GM/200 ML PIGGYBACK IV SCH ×2 (11:56→22:21)
[2021-07-19] MEDS: TYLENOL EXTRA STRENGTH 500 MG PO PRN (21:19)
[2021-07-19] MEDS: DESYREL 50 MG PO SCH (22:22)
[2021-07-19] MEDS: Ativan 1 MG PO SCH (22:22)
[2021-07-19] MEDS: ECOTRIN 81 MG PO SCH (22:22)
[2021-07-19] MEDS: ZOCOR 20MG PO SCH (22:23)
[2021-07-20] MEDS: VANCOMYCIN 1 GRAM/200 ML BAG 1 GM/200 ML PIGGYBACK IV SCH (05:39)
[2021-07-20 06:38] LABS: Hematocrit 42.7 % (42-50); Hemoglobin 14.1 gm/dl (12.5-18.0); Mean Cell Volume 98.2 fl (78-100); Mean Corpuscular Hemoglobin 32.4 pg (26-32); Mean Platelet Volume 9.5 fl (7.5-11.0); Platelet Count 191 K/mm3 (150-450); Red Blood Count 4.35 M/mm3 (4.1-5.6); Red Cell Distribution Width 11.9 % (11.5-14.0); White Blood Count 5.4 K/mm3 (4.0-10.5)
[2021-07-20 08:11] LABS: Eosinophil 1 % (0.00-3.0); Lymphocytes 9 % (24-44); Monocyte 2 % (0.0-12.0); Neutrophils 88 % (36.-66.); Total Cells Counted 100
[2021-07-20 08:12] LABS: Platelet Estimate NORMAL (NORMAL)
[2021-07-20] MEDS: PATIENT OWN MEDICATION IH SCH ×2 (08:25→21:20)
[2021-07-20] MEDS: VENTOLIN COMMON CANISTER IH PRN ×3 (08:25→21:20)
[2021-07-20] MEDS: OLUMIANT PO SCH (09:33)
[2021-07-20] MEDS: celeBREX 100 MG PO SCH (09:34)
[2021-07-20] MEDS: Ranexa 500 MG PO SCH ×2 (09:34→22:53)
[2021-07-20] MEDS: LASIX 20 MG PO SCH (09:34)
[2021-07-20] MEDS: DECADRON 10MG INJ. IV SCH (09:34)
[2021-07-20] MEDS: Lopressor 25MG Tab PO SCH (09:34)
[2021-07-20] MEDS: ENOXAPARIN SODIUM SQ SCH (09:34)
[2021-07-20] MEDS: HYDROCODONE-CHLORPHEN ER SUSP PO PRN ×2 (09:46→21:26)
[2021-07-20] MEDS: Ativan 2 MG/1 ML VIAL IV PRN ×2 (09:47→13:10)
--- NOTE | 2021-07-20 10:14 | XRAY ---
Indication: Short of breath. Covid 19. Comparison: July 18, 2021. Portable chest again demonstrates moderate diffuse bilateral patchy airspace disease, worsened in both lung bases. Remaining heart and bony thorax unremarkable.
[2021-07-20 11:05] LABS: Absolute Neutrophil Ct (ANC) 7.06 (1.4-6.9); Basophil (Absolute #) 0 (0-0.4); Eosinophil (Absolute #) 0 (0-0.5); Hematocrit 42.1 % (42-50); Lymphocyte (Absolute #) 0.68 (1.0-4.6); Lymphocytes % 8.4 % (24.0-44.0); Mean Cell Volume 98.8 fl (78-100); Mean Corpuscular Hemoglobin 32.9 pg (26-32); Mean Corpuscular Hgb Concent. 33.3 g/dl (32-36); Mean Platelet Volume 9.6 fl (7.5-11.0); Monocyte (Absolute #) 0.37 (0.0-1.3); Monocytes % 4.6 % (0.0-12.0); Platelet Count 200 K/mm3 (150-450); Red Blood Count 4.26 M/mm3 (4.1-5.6); White Blood Count 8.1 K/mm3 (4.0-10.5)
[2021-07-20 13:35] LABS: A-aADO2 304; ABG HEMOGLOBIN 14.4; ABG POTASSIUM 3.9 (3.5-5.1); ARTERIAL BLD GAS O2 SATURATION 96.5 % (95-100); ARTERIAL BLOOD GAS BASE EXCESS 5.5 (-2.0-2.0); ARTERIAL BLOOD GAS FIO2 60 %; ARTERIAL BLOOD GAS PCO2 37 mmHg (35-45); ARTERIAL BLOOD GAS PO2 78 mmHg (75-100); CARBOXYHEMOGLOBIN 0.9 % THgb (0.0-6.9); HCO3- 28.9 (22-28); HGB O2 SAT 95.1 g/dF (94-100); Methhemoglobin 0.5 % (1.4-1.5)
[2021-07-20 13:36] LABS: ABG SITE LEFT RADIAL; ALLEN TEST OK? YES
[2021-07-20] MEDS: REMDESIVIR 100 MG in Sodium Chloride 0.9% 100 ML BAG 100 ML IV SCH (16:30)
[2021-07-20] MEDS: TYLENOL EXTRA STRENGTH 500 MG PO PRN (21:26)
[2021-07-20] MEDS: DESYREL 50 MG PO SCH (22:53)
[2021-07-20] MEDS: Ativan 1 MG PO SCH (22:53)
[2021-07-20] MEDS: ZOCOR 20MG PO SCH (22:53)
[2021-07-20] MEDS: ECOTRIN 81 MG PO SCH (22:53)
[2021-07-21] MEDS ORDERED: TROUGH DRUG LEVELS IJ ONE (05:30)
[2021-07-21] MEDS: VENTOLIN COMMON CANISTER IH PRN ×2 (08:15→19:20)
[2021-07-21] MEDS: PATIENT OWN MEDICATION IH SCH ×2 (08:15→19:20)
--- NOTE | 2021-07-21 09:29 | CONS ---
CONSULT DATE: 07/20/2021 HISTORY: Edward Biggs is a 61-year-old male known to me who has been hospitalized at [facility] with complaints of shortness of breath, cough and generalized body aches. The patient tested positive about a week ago. His has tested positive as well. He has been getting progressively more hypoxic leading to hospitalization. Since admission, he has been treated with high flow oxygen along with IV Remdesivir, oral Olumiant and steroids per protocol. The patient does report some clinical improvement but continues to have dry nonproductive cough. He however is able to carry out a conversation. His chest x-ray does show bilateral patchy infiltrates. PAST MEDICAL HISTORY: Positive for history of myocardial infarction. He is followed by Dr. Newell for the same. History of chronic obstructive pulmonary disease and sleep apnea. PAST SURGICAL HISTORY: Knee surgery. Rotator cuff surgery. PERSONAL AND SOCIAL HISTORY: He is an ex-smoker. MEDICATIONS: Home and current medications are reviewed. ALLERGIES: NKDA. PHYSICAL EXAMINATION: This is a middle aged male who appears tired and weak. Vital signs noted. HEENT: Normocephalic. Oral exam limited. NECK: Supple. CVS: First and second heart sounds are normal, regular, rhythmic. RESPIRATORY: Shows diminished breath sounds, posterior crackles are heard. ABDOMEN: Soft. EXTREMITIES: No edema is noted. LABORATORY DATA AND TESTS: X-rays reviewed. Currently saturating 92% on high flow. Chest x-ray noted. ASSESSMENT: This is a 61-year-old male admitted with: 1) Acute severe hypoxic respiratory failure. 2) COVID-19 positive with viral pneumonia. 3) Obstructive sleep apnea. RECOMMENDATIONS: 1) The patient is being treated per protocol. 2) Will benefit from noninvasive ventilation. The patient has his own CPAP at bedside however will attempt BiPAP with AVAPS mode to improve volume support and hopefully improve aeration. 3) Continue other supportive care. 4) The role of postural therapy discussed. 5) Continue deep vein thrombosis prophylaxis and other supportive care. I will be available during his care as needed. Thank you, Dr. Nuno, for allowing me to participate in the care of this patient.
[2021-07-21] MEDS: OLUMIANT PO SCH (09:37)
[2021-07-21] MEDS: LASIX 20 MG PO SCH (09:37)
[2021-07-21] MEDS: HYDROCODONE-CHLORPHEN ER SUSP PO PRN ×2 (09:37→22:01)
[2021-07-21] MEDS: TYLENOL EXTRA STRENGTH 500 MG PO PRN ×2 (09:40→22:01)
[2021-07-21] MEDS: ENOXAPARIN SODIUM SQ SCH (09:43)
[2021-07-21] MEDS: DECADRON 10MG INJ. IV SCH (09:44)
[2021-07-21] MEDS: Ranexa 500 MG PO SCH ×2 (09:45→22:01)
[2021-07-21] MEDS: celeBREX 100 MG PO SCH (09:45)
[2021-07-21] MEDS: Lopressor 25MG Tab PO SCH (09:48)
[2021-07-21] MEDS: Lasix 20 MG/2 ML IV SCH (11:10)
[2021-07-21 11:59] LABS: Hematocrit 42.5 % (42-50); Hemoglobin 14.1 gm/dl (12.5-18.0); Mean Cell Volume 98.6 fl (78-100); Mean Corpuscular Hemoglobin 32.7 pg (26-32); Mean Corpuscular Hgb Concent. 33.2 g/dl (32-36); Platelet Count 216 K/mm3 (150-450); Red Blood Count 4.31 M/mm3 (4.1-5.6); Red Cell Distribution Width 11.8 % (11.5-14.0); White Blood Count 9.9 K/mm3 (4.0-10.5)
[2021-07-21] MEDS: Ativan 1 MG PO PRN (13:03)
--- NOTE | 2021-07-21 13:20 | PROG NOTE ---
DAILY NOTE: DATE: 07/21/2021 HOSPITAL COURSE: More short of breath, more productive cough. Had to put him on BiPAP last night. Presently his O2 is 92% on 10 liters cannula. He is always short of breath when talking. He did eat okay. His chest x-ray yesterday was really about the same. CBC was normal. D-dimer was not markedly elevated. However, he has deteriorated. Blood gas this morning was pH 7.5, pCO2 of 87, pO2 of 78. He was continued on 10 liters. White count 8.1 yesterday. Alert, orientated. Chest few crackles. Heart sounds regular, not fast. Abdomen obese. His COVID is getting a little bit worse. Will continue on Remdesivir and all the other drugs. Will try to prone him some. He said he will try. Last night he looked a lot better. Will get a chest x-ray and a D-dimer tomorrow. Dr. Tk Tsang saw him yesterday. Will get him Lasix 20 because he positive fluid quite a bit. PROGNOSIS: The prognosis is still good.
[2021-07-21] MEDS: REMDESIVIR 100 MG in Sodium Chloride 0.9% 100 ML BAG 100 ML IV SCH (17:09)
[2021-07-21] MEDS: Ativan 1 MG PO SCH (22:00)
[2021-07-21] MEDS: ZOCOR 20MG PO SCH (22:01)
[2021-07-21] MEDS: DESYREL 50 MG PO SCH (22:01)
[2021-07-21] MEDS: ECOTRIN 81 MG PO SCH (22:01)
[2021-07-22 05:35] LABS: Hematocrit 42.3 % (42-50); Hemoglobin 13.9 gm/dl (12.5-18.0); Mean Cell Volume 98.1 fl (78-100); Mean Corpuscular Hemoglobin 32.3 pg (26-32); Mean Corpuscular Hgb Concent. 32.9 g/dl (32-36); Mean Platelet Volume 9.2 fl (7.5-11.0); Platelet Count 214 K/mm3 (150-450); Red Blood Count 4.31 M/mm3 (4.1-5.6); Red Cell Distribution Width 11.9 % (11.5-14.0)
[2021-07-22 06:20] LABS: ALBUMIN 3.3 g/dL (3.5-5.0); ALKALINE PHOSPHATASE 69 U/L (38-126); ANION GAP 9.9 MEQ/L (5-15); BLOOD UREA NITROGEN 17 mg/dL (9-20); CHLORIDE 101 mmol/L (98-107); Calcium 8.3 mg/dL (8.4-10.2); Carbon Dioxide 31 mmol/L (22-30); Creatinine 1 0.75 mg/dL (0.66-1.25); EST GLOMERULAR FILTRATION RATE > 60.0 ML/MIN; Glucose 125 mg/dL (74-106); Potassium 4.4 mmol/L (3.5-5.1); SGOT/AST 43 U/L (17-59); SGPT/ALT 56 U/L (0-50); SODIUM 137 mmol/L (137-145); Total Protein 5.9 g/dL (6.3-8.2)
[2021-07-22] MEDS: VENTOLIN COMMON CANISTER IH PRN ×2 (08:08→19:40)
[2021-07-22] MEDS: PATIENT OWN MEDICATION IH SCH ×2 (08:08→19:40)
--- NOTE | 2021-07-22 08:39 | XRAY ---
Indication: Follow-up Covid 19. Comparison: July 20, 2021. Portable chest again demonstrates moderate diffuse bilateral airspace disease, minimally improved. Heart not enlarged. No new cardiopulmonary abnormalities.
[2021-07-22] MEDS: ENOXAPARIN SODIUM SQ SCH (09:20)
[2021-07-22] MEDS: DECADRON 10MG INJ. IV SCH (09:20)
[2021-07-22] MEDS: Lasix 20 MG/2 ML IV SCH (09:21)
[2021-07-22] MEDS: OLUMIANT PO SCH (09:22)
[2021-07-22] MEDS: Lopressor 25MG Tab PO SCH (09:22)
[2021-07-22] MEDS: Ranexa 500 MG PO SCH ×2 (09:23→22:25)
[2021-07-22] MEDS: celeBREX 100 MG PO SCH (09:24)
[2021-07-22] MEDS: HYDROCODONE-CHLORPHEN ER SUSP PO PRN ×2 (09:26→22:25)
[2021-07-22] MEDS: TYLENOL EXTRA STRENGTH 500 MG PO PRN ×3 (12:07→22:25)
[2021-07-22] MEDS: REMDESIVIR 100 MG in Sodium Chloride 0.9% 100 ML BAG 100 ML IV SCH (17:25)
[2021-07-22] MEDS: Ativan 1 MG PO SCH (22:24)
[2021-07-22] MEDS: ECOTRIN 81 MG PO SCH (22:25)
[2021-07-22] MEDS: ZOCOR 20MG PO SCH (22:25)
[2021-07-22] MEDS: DESYREL 50 MG PO SCH (22:25)
[2021-07-23] MEDS: TYLENOL EXTRA STRENGTH 500 MG PO PRN ×2 (08:26→22:33)
[2021-07-23] MEDS: PATIENT OWN MEDICATION IH SCH ×2 (08:40→20:11)
[2021-07-23] MEDS: VENTOLIN COMMON CANISTER IH PRN ×2 (08:40→20:11)
[2021-07-23] MEDS: OLUMIANT PO SCH (10:06)
[2021-07-23] MEDS: celeBREX 100 MG PO SCH (10:06)
[2021-07-23] MEDS: Lopressor 25MG Tab PO SCH (10:07)
[2021-07-23] MEDS: ENOXAPARIN SODIUM SQ SCH (10:07)
[2021-07-23] MEDS: DECADRON 10MG INJ. IV SCH (10:07)
[2021-07-23] MEDS: Lasix 20 MG/2 ML IV SCH (10:07)
[2021-07-23] MEDS: Ranexa 500 MG PO SCH ×2 (10:07→22:30)
[2021-07-23] MEDS: HYDROCODONE-CHLORPHEN ER SUSP PO PRN ×2 (10:35→22:33)
[2021-07-23] MEDS ORDERED: OCEAN Nasal Spray NS PRN (10:42)
[2021-07-23] MEDS: REMDESIVIR 100 MG in Sodium Chloride 0.9% 100 ML BAG 100 ML IV SCH (16:22)
[2021-07-23] MEDS: Ativan 1 MG PO SCH (22:29)
[2021-07-23] MEDS: ECOTRIN 81 MG PO SCH (22:30)
[2021-07-23] MEDS: DESYREL 50 MG PO SCH (22:30)
[2021-07-23] MEDS: ZOCOR 20MG PO SCH (22:31)
[2021-07-24 06:57] LABS: Hematocrit 43.1 % (42-50); Hemoglobin 13.9 gm/dl (12.5-18.0); Mean Cell Volume 99.1 fl (78-100); Mean Corpuscular Hgb Concent. 32.3 g/dl (32-36); Mean Platelet Volume 9.2 fl (7.5-11.0); Platelet Count 284 K/mm3 (150-450); Red Blood Count 4.35 M/mm3 (4.1-5.6); Red Cell Distribution Width 11.8 % (11.5-14.0); White Blood Count 7.1 K/mm3 (4.0-10.5)
[2021-07-24] MEDS: PATIENT OWN MEDICATION IH SCH ×2 (07:35→19:56)
[2021-07-24] MEDS: VENTOLIN COMMON CANISTER IH PRN ×3 (07:35→19:56)
--- NOTE | 2021-07-24 08:31 | XRAY ---
Indication: Follow-up Covid 19. Comparison: July 22, 2021. Portable chest continues to demonstrates moderate diffuse bilateral airspace disease, minimally improved especially in right lung. Heart and mediastinal structures within normal limits. No new cardiopulmonary abnormalities.
[2021-07-24] MEDS: celeBREX 100 MG PO SCH (09:58)
[2021-07-24] MEDS: OLUMIANT PO SCH (09:58)
[2021-07-24] MEDS: Ranexa 500 MG PO SCH ×2 (09:58→22:09)
[2021-07-24] MEDS: Lasix 20 MG/2 ML IV SCH ×2 (09:58→10:15)
[2021-07-24] MEDS: DECADRON 10MG INJ. IV SCH (09:58)
[2021-07-24] MEDS: ENOXAPARIN SODIUM SQ SCH (09:58)
[2021-07-24] MEDS: Lopressor 25MG Tab PO SCH ×2 (09:59→14:22)
[2021-07-24] MEDS: LASIX 20 MG PO SCH (10:19)
[2021-07-24] MEDS: REMDESIVIR 100 MG in Sodium Chloride 0.9% 100 ML BAG 100 ML IV SCH (17:16)
[2021-07-24] MEDS: Ativan 1 MG PO SCH (22:08)
[2021-07-24] MEDS: HYDROCODONE-CHLORPHEN ER SUSP PO PRN (22:09)
[2021-07-24] MEDS: ZOCOR 20MG PO SCH (22:09)
[2021-07-24] MEDS: ECOTRIN 81 MG PO SCH (22:09)
[2021-07-24] MEDS: DESYREL 50 MG PO SCH (22:09)
[2021-07-24] MEDS: TYLENOL EXTRA STRENGTH 500 MG PO PRN (22:09)
[2021-07-25 05:48] LABS: Hematocrit 42.3 % (42-50); Hemoglobin 13.9 gm/dl (12.5-18.0); Mean Cell Volume 98.6 fl (78-100); Mean Corpuscular Hemoglobin 32.4 pg (26-32); Mean Corpuscular Hgb Concent. 32.9 g/dl (32-36); Mean Platelet Volume 9.2 fl (7.5-11.0); Platelet Count 314 K/mm3 (150-450); Red Blood Count 4.29 M/mm3 (4.1-5.6); White Blood Count 7.6 K/mm3 (4.0-10.5)
[2021-07-25 06:05] LABS: ALBUMIN 3.3 g/dL (3.5-5.0); ALKALINE PHOSPHATASE 72 U/L (38-126); ANION GAP 11.8 MEQ/L (5-15); BLOOD UREA NITROGEN 17 mg/dL (9-20); CHLORIDE 102 mmol/L (98-107); Calcium 8.4 mg/dL (8.4-10.2); Carbon Dioxide 27 mmol/L (22-30); Creatinine 1 0.76 mg/dL (0.66-1.25); EST GLOMERULAR FILTRATION RATE > 60.0 ML/MIN; Glucose 126 mg/dL (74-106); Potassium 4.4 mmol/L (3.5-5.1); SGOT/AST 19 U/L (17-59); SGPT/ALT 39 U/L (0-50); SODIUM 136 mmol/L (137-145); Total Protein 5.9 g/dL (6.3-8.2)
[2021-07-25] MEDS: PATIENT OWN MEDICATION IH SCH ×2 (09:20→19:36)
[2021-07-25] MEDS: VENTOLIN COMMON CANISTER IH PRN ×2 (09:20→19:36)
[2021-07-25] MEDS: Ranexa 500 MG PO SCH ×2 (10:57→22:44)
[2021-07-25] MEDS: celeBREX 100 MG PO SCH (10:57)
[2021-07-25] MEDS: LASIX 20 MG PO SCH (10:57)
--- NOTE | 2021-07-25 10:57 | XRAY ---
Indication: Follow-up Covid 19. Comparison: One day earlier. Portable chest less inflated with grossly stable moderate diffuse bilateral airspace disease. Remaining heart and bony thorax unremarkable
[2021-07-25] MEDS: OLUMIANT PO SCH (10:58)
[2021-07-25] MEDS: ENOXAPARIN SODIUM SQ SCH (10:58)
[2021-07-25] MEDS: DECADRON 10MG INJ. IV SCH (10:58)
[2021-07-25] MEDS: Lopressor 25MG Tab PO SCH (10:59)
[2021-07-25] MEDS: REMDESIVIR 100 MG in Sodium Chloride 0.9% 100 ML BAG 100 ML IV SCH (17:59)
[2021-07-25] MEDS: ZOCOR 20MG PO SCH (22:43)
[2021-07-25] MEDS: HYDROCODONE-CHLORPHEN ER SUSP PO PRN (22:43)
[2021-07-25] MEDS: DESYREL 50 MG PO SCH (22:43)
[2021-07-25] MEDS: ECOTRIN 81 MG PO SCH (22:43)
[2021-07-25] MEDS: Ativan 1 MG PO SCH (22:44)
[2021-07-26] MEDS: celeBREX 100 MG PO SCH (09:39)
[2021-07-26] MEDS: DECADRON 10MG INJ. IV SCH (09:39)
[2021-07-26] MEDS: ENOXAPARIN SODIUM SQ SCH (09:39)
[2021-07-26] MEDS: Lopressor 25MG Tab PO SCH (09:40)
[2021-07-26] MEDS: LASIX 20 MG PO SCH (09:40)
[2021-07-26] MEDS: Ranexa 500 MG PO SCH ×2 (09:41→21:57)
[2021-07-26] MEDS: OLUMIANT PO SCH (09:41)
[2021-07-26] MEDS: PATIENT OWN MEDICATION IH SCH ×2 (11:16→18:50)
[2021-07-26] MEDS: VENTOLIN COMMON CANISTER IH PRN ×2 (11:16→18:50)
[2021-07-26] MEDS: REMDESIVIR 100 MG in Sodium Chloride 0.9% 100 ML BAG 100 ML IV SCH (16:40)
[2021-07-26] MEDS: Ativan 1 MG PO SCH (21:56)
[2021-07-26] MEDS: ECOTRIN 81 MG PO SCH (21:57)
[2021-07-26] MEDS: ZOCOR 20MG PO SCH (21:57)
[2021-07-26] MEDS: HYDROCODONE-CHLORPHEN ER SUSP PO PRN (21:57)
[2021-07-26] MEDS: DESYREL 50 MG PO SCH (21:58)
[2021-07-27] MEDS: DECADRON 10MG INJ. IV SCH (08:55)
[2021-07-27] MEDS: OLUMIANT PO SCH (08:55)
[2021-07-27] MEDS: Ranexa 500 MG PO SCH ×2 (08:55→22:16)
[2021-07-27] MEDS: LASIX 20 MG PO SCH (08:56)
[2021-07-27] MEDS: Lopressor 25MG Tab PO SCH (08:56)
[2021-07-27] MEDS: celeBREX 100 MG PO SCH (08:56)
[2021-07-27] MEDS: Ativan 1 MG PO PRN (09:14)
[2021-07-27] MEDS: ENOXAPARIN SODIUM SQ SCH (09:14)
[2021-07-27] MEDS: PATIENT OWN MEDICATION IH SCH ×2 (11:00→19:15)
[2021-07-27] MEDS: REMDESIVIR 100 MG in Sodium Chloride 0.9% 100 ML BAG 100 ML IV SCH (17:08)
[2021-07-27] MEDS: VENTOLIN COMMON CANISTER IH PRN (19:15)
[2021-07-27] MEDS: DESYREL 50 MG PO SCH (22:16)
[2021-07-27] MEDS: Ativan 1 MG PO SCH (22:16)
[2021-07-27] MEDS: HYDROCODONE-CHLORPHEN ER SUSP PO PRN (22:16)
[2021-07-27] MEDS: ZOCOR 20MG PO SCH (22:16)
[2021-07-27] MEDS: ECOTRIN 81 MG PO SCH (22:16)
[2021-07-27] MEDS: TYLENOL EXTRA STRENGTH 500 MG PO PRN (22:23)
[2021-07-28] MEDS: PATIENT OWN MEDICATION IH SCH (08:30)
[2021-07-28] MEDS: TYLENOL EXTRA STRENGTH 500 MG PO PRN (09:00)
[2021-07-28] MEDS: DECADRON 10MG INJ. IV SCH ×2 (09:00→10:05)
[2021-07-28] MEDS: OLUMIANT PO SCH (09:00)
[2021-07-28] MEDS: LASIX 20 MG PO SCH (09:00)
[2021-07-28] MEDS: Lopressor 25MG Tab PO SCH (09:01)
[2021-07-28] MEDS: celeBREX 100 MG PO SCH (09:01)
[2021-07-28] MEDS: Ranexa 500 MG PO SCH (09:02)
[2021-07-28] MEDS: Ativan 1 MG PO PRN (09:06)
[2021-07-28] MEDS: ENOXAPARIN SODIUM SQ SCH (09:06)
[2021-07-28] MEDS ORDERED: DELTASONE 20 MG PO SCH (10:30)
--- NOTE | 2021-07-28 11:12 | DS ---
ADMISSION DIAGNOSIS: COVID pneumonia. DISCHARGE DIAGNOSIS: COVID PNEUMONIA. CONSULTATIONS: Dr. Tk Tsang. HOSPITAL COURSE: The patient did have some chest pain on 07/19/2021, which went away promptly. Chest x-ray showed stable moderate diffuse bilateral airspace on 07/25/2021. EKG's were normal. The patient came in after being short of breath for approximately a week. He is a nonsmoker. His does not have it. I believe he or she has not been vaccinated. Showed up in the emergency room. Chest x-ray showed bilateral COVID pneumonia and a little bit of chest pain. His cardiac enzymes went down quickly. He still required 3 to 4 liters up until two days before discharge and he was weaned off oxygen. Main complaint now is that he is just weak. He was able to walk to the bathroom. His blood cultures were gram-positive but the lab said it looks like contaminant. He had no signs of a bacterial disease. Dr. Tsang saw him on 07/30/2021. He said we were doing the right things, treat him with all the COVID medications and anticoagulated him. By 07/27/2021, his D-dimer was still elevated at 3958. However, his COVID disease is better and he shows no signs of pulmonary embolism or deep vein thrombosis. We will probably send him home on prednisone 20 mg x5 days, 10 mg x5, baby aspirin 81 mg q.d., plus his arthritis medicine Celebrex, cough medicine, Lasix he only takes 20 q.d., Simvastatin 20 q.d., trazodone 50 q.d. Follow up with his physician in two weeks, stay isolated at his house or yard for two weeks. He has my number to call me if he thinks he has got a problem. I really doubt if he will have any after he had a prolonged course to recover. He seems to be kind of out of shape and pretty extensive changes on chest x-ray. PROGNOSIS: Good.
[2021-07-28] MEDS: REMDESIVIR 100 MG in Sodium Chloride 0.9% 100 ML BAG 100 ML IV SCH (16:25)
[2021-08-01 16:12] VITALS: BP 117/66; PULSE 71; O2SAT 94
== END 2021-07-28 17:00 | disposition home or self-care (01) | DRG 177 ==
LOC: ED 11:48 → MED SURG 16:28
PROVIDERS: ADMIT Family Medicine; ATTEND Family Medicine
DX: U07.1 COVID-19 (principal); J12.82 Pneumonia due to coronavirus disease 2019; J96.01 Acute respiratory failure with hypoxia; J44.9 Chronic obstructive pulmonary disease, unspecified; R11.2 Nausea with vomiting, unspecified; R53.83 Other fatigue; G47.33 Obstructive sleep apnea (adult) (pediatric); I25.2 Old myocardial infarction; Z79.899 Other long term (current) drug therapy; Z87.891 Personal history of nicotine dependence; Z20.828 Contact with and (suspected) exposure to other viral communicable diseases; R51.9 Headache, unspecified; R79.1 Abnormal coagulation profile; R07.9 Chest pain, unspecified; R53.1 Weakness
CPT/HCPCS: 36000; 36415; 36600; 71045; 80053; 82375; 82803; 83880; 84484; 85025; 85027; 85379; 87040; 93005; 93041; 94002; 94003; 94640; 94760; 94762; 96365; 96367; 96372; 96374; 99285; U0003; J0456; J0696; J1100; J1650; J1940; J2060; A9270-GY; J3370

== ENCOUNTER 2022-09-10 18:48 | Emergency (ER) | payer MEDICARE ==
[2022-09-10] MEDS ORDERED: Sodium Chloride 0.9% 1000 ML 1,000 ML IV STA (19:19)
[2022-09-10] MEDS ORDERED: TORAdol 30 mg Injection IV ONE (19:19)
[2022-09-10] MEDS ORDERED: Zofran 4 MG/2 ML VIAL IV ONE (19:19)
[2022-09-10] MEDS ORDERED: Hydromorphone 1 mg/ml Injection IV ONE (19:19)
[2022-09-10 19:29] LABS: Bacteria RARE /HPF (NEGATIVE); Epithelial Cells RARE /HPF (FEW); Mucus SLIGHT /HPF (NEGATIVE)
[2022-09-10 19:30] LABS: Appearance SLIGHTLY CLOUDY (CLEAR); Bilirubin NEGATIVE (NEGATIVE); Dipstick done @ ? MAIN LAB; Glucose NEGATIVE (NEGATIVE); Ketones SMALL-15 (NEGATIVE); Nitrite NEGATIVE (NEGATIVE); Protein,Urine Dip TRACE (Negative); RBC SMALL Ery/ul (0-5); Urobilinogen 0.2 mg/dL (0-1)
[2022-09-10 19:31] LABS: Urine Cultured Indicated? YES
[2022-09-10] MEDS ORDERED: TORAdol 30 mg Injection ONE (19:41)
[2022-09-10] MEDS ORDERED: Zofran 4 MG/2 ML VIAL ONE (19:41)
[2022-09-10] MEDS ORDERED: Sodium Chloride 0.9% 1000 ML 1,000 ML ONE (19:42)
[2022-09-10] MEDS ORDERED: Hydromorphone 1 mg/ml Injection ONE (19:42)
[2022-09-10 19:49] LABS: Absolute Neutrophil Ct (ANC) 9.46 x10^3/uL (1.4-6.9); Basophil (Absolute #) 0.03 x10^3/uL (0-0.4); Eosinophil % 0.4 % (0.00-5.0); Eosinophil (Absolute #) 0.04 x10^3/uL (0-0.5); Hematocrit 43.7 % (42-50); Hemoglobin 14.7 g/dL (12.5-18.0); Lymphocyte (Absolute #) 0.92 x10^3/uL (1.0-4.6); Lymphocytes % 8.1 % (24.0-44.0); Mean Cell Volume 98.2 fL (78-100); Mean Corpuscular Hgb Concent. 33.6 g/dL (32-36); Mean Platelet Volume 9.5 fL (7.5-11.0); Monocyte (Absolute #) 0.83 x10^3/uL (0.0-1.3); Monocytes % 7.3 % (0.0-12.0); Neutrophil % 83.5 % (36.0-66.0); Platelet Count 176 x10^3/uL (150-450); Red Blood Count 4.45 x10^6/uL (4.1-5.6); Red Cell Distribution Width 11.3 % (11.5-14.0); White Blood Count 11.3 x10^3/uL (4.0-10.5)
[2022-09-10 20:02] LABS: ALBUMIN 4.5 g/dL (3.5-5.0); ANION GAP 13.1 MEQ/L (5-15); BILIRUBIN,TOTAL 0.5 mg/dL (0.2-1.3); Calcium 9.3 mg/dL (8.4-10.2); Creatinine 1 2.36 mg/dL (0.66-1.25); EST GLOMERULAR FILTRATION RATE 30.1 ML/MIN; Potassium 4.2 mmol/L (3.5-5.1); Total Protein 7.7 g/dL (6.3-8.2)
[2022-09-10 20:11] VITALS: PULSE 95; O2SAT 92
--- NOTE | 2022-09-10 20:18 | ERPHSYRPT ---
- History of Present Illness Time Seen by Provider: 09/10/22 19:09 Source: patient Exam Limitations: no limitations Patient Subjective Stated Complaint: pt states he has been having sharp pain for three days intermittently in his left testicle that radiates to the back, pt states he is concerned because he has had stones before Triage Nursing Assessment: pt is alert and oriented, laying in bed, states pain is 9/10 in back, and l groin Physician History: Patient here with left flank pain. Started 2 to 3 days ago. Gradual onset. It is in the left CVA area. No falls or trauma. Some nausea no vomiting. States pain radiates into the left testicle. Patient has a history of kidney stones. No issues peeing today. Timing/Duration: week(s) Severity: mild Associated Symptoms: nausea, abdominal pain Allergies/Adverse Reactions: No Known Drug Allergies Allergy (Verified 07/18/21 12:13) Home Medications: Albuterol Sulfate [Albuterol Sulfate Hfa] 1 inh NEB Q4-6HPRN PRN 01/17/21 [ History] Aspirin [Aspirin EC] 81 mg PO HS 01/17/21 [History] Budesonide/Glycopyr/Formoterol [Breztri Aerosphere Inhaler] 2 puffs IH BID 07/18/21 [History] Celecoxib [Celebrex] 200 mg PO DAILY 07/18/21 [History] Furosemide 20 mg [Lasix 20 mg] 20 mg PO DAILY 07/18/21 [History] Metoprolol Tartrate 25 mg [Lopressor 25MG Tab] 12.5 mg PO DAILY 07/18/21 [History] Ranolazine [Ranolazine ER] 500 mg PO BID 07/18/21 [History] Rosuvastatin Calcium [Crestor] 20 mg PO HS 07/18/21 [History] Trazodone HCl 50 mg [Desyrel 50 mg] 50 mg PO HS 07/18/21 [History] Hx Tetanus, Diphtheria Vaccination/Date Given: Yes (2 YEARS) Hx Influenza Vaccination/Date Given: Yes Hx Pneumococcal Vaccination/Date Given: Yes Travel Risk - International Travel Have you traveled outside of the country in past 3 weeks: No - Coronavirus Screening Are you exhibiting any of the following symptoms?: No Close contact with a COVID-19 positive Pt in past 14-21 Days: No - Vaccine Status Have you recieved a Covid-19 vaccination: No - Review of Systems Constitutional: No Fever, No Chills Eyes: No Symptoms Ears, Nose, & Throat: No Symptoms Respiratory: No Cough, No Dyspnea Cardiac: No Chest Pain, No Edema, No Syncope Abdominal/Gastrointestinal: No Abdominal Pain, No Nausea, No Vomiting, No Diarrhea Genitourinary Symptoms: Flank Pain, No Dysuria Musculoskeletal: No Back Pain, No Neck Pain Skin: No Rash Neurological: No Dizziness, No Focal Weakness, No Sensory Changes Psychological: No Symptoms Endocrine: No Symptoms All Other Systems: Reviewed and Negative - Past Medical History Pertinent Past Medical History: Yes Neurological History: Seizures ENT History: No Pertinent History Cardiac History: Coronary Artery Disease, High Cholesterol, Myocardial Infarction (ND) Respiratory History: COPD, Emphysema Endocrine Medical History: No Pertinent History Musculoskeletal History: Rheumatoid Arthritis GI Medical History: Hernia History: Other Psycho-Social History: No Pertinent History Male Reproductive Disorders: No Pertinent History Other Medical History: PT HAS HAD ND, 2 TKA; stent x 2 - Past Surgical History Past Surgical History: Yes Neuro Surgical History: No Pertinent History Cardiac: No Pertinent History Respiratory: No Pertinent History Gastrointestinal: Hernia Repair Genitourinary: No Pertinent History Musculoskeletal: Orthopedic Surgery Male Surgical History: No Pertinent History Other Surgical History: KNEE SURGERY, ROTOTR CUFF X4. - Social History Smoking Status: Former smoker How long have you smoked: 30 years Exposure to second hand smoke: No Drug Use: none Patient Lives Alone: No - Nursing Vital Signs Nursing Vital Signs: Initial Vital Signs Pulse Rate 95 H 09/10/22 20:00 Respiratory Rate 18 09/10/22 20:00 O2 Sat by Pulse Oximetry 92 L 09/10/22 20:00 Pain Scale Pain Intensity 9 - Physical Exam General Appearance: no apparent distress, alert Eye Exam: PERRL/EOMI, eyes nml inspection Ears, Nose, Throat Exam: normal ENT inspection, TMs normal, pharynx normal, moist mucous membranes Neck Exam: normal inspection, non-tender, supple, full range of motion Respiratory Exam: normal breath sounds, lungs clear, No respiratory distress Cardiovascular Exam: regular rate/rhythm, normal heart sounds, normal peripheral pulses Gastrointestinal/Abdomen Exam: soft, normal bowel sounds, tenderness, other (Left flank tenderness to palpation), No mass Back Exam: normal inspection, normal range of motion, No CVA tenderness, No vertebral tenderness Extremity Exam: normal inspection, normal range of motion, pelvis stable Neurologic Exam: alert, oriented x 3, cooperative, normal mood/affect, nml cerebellar function, nml station & gait, sensation nml, No motor deficits Skin Exam: normal color, warm, dry, No rash Lymphatic Exam: No adenopathy SpO2: 92 - Course Nursing assessment & vital signs reviewed: Yes Ordered Tests: Active Orders 24 hr Category Date Time Status IV Insertion STAT Care 09/10/22 19:19 Active ABDOMEN AND PELVIS W CONTRAST [CT] Stat Exams 09/10/22 19:19 Taken CBC W DIFF Stat Lab 09/10/22 19:40 Completed CMP Stat Lab 09/10/22 19:40 Completed CULTURE,URINE Stat Lab 09/10/22 Received LIPASE Stat Lab 09/10/22 19:40 Completed UA W/RFX CULTURE Stat Lab 09/10/22 Completed Medication Summary Discontinued Medications Generic Name Dose Route Start Last Admin Trade Name Freq PRN Reason Stop Dose Admin Hydromorphone HCl 1 mg 09/10/22 19:19 09/10/22 19:51 Hydromorphone 1 Mg/1ml Inj 1 Mg/Ml Syringe IV 09/10/22 19:20 1 mg STAT ONE Administration Hydromorphone HCl Confirm 09/10/22 19:42 Hydromorphone 1 Mg/1ml Inj 1 Mg/Ml Syringe Administered 09/10/22 19:43 Dose 1 mg .ROUTE .STK-MED ONE Sodium Chloride 1,000 mls @ 999 mls/hr 09/10/22 19:19 09/10/22 19:49 Sodium Chloride 0.9% 1000 Ml IV 09/10/22 20:19 999 mls/hr .Q1H1M STA Administration Sodium Chloride Confirm 09/10/22 19:42 Sodium Chloride 0.9% 1000 Ml Administered 09/10/22 19:43 Dose 1,000 mls @ ud .ROUTE .STK-MED ONE Ketorolac Tromethamine 30 mg 09/10/22 19:19 09/10/22 19:50 Ketorolac Tromethamine 30 Mg/Ml Inj IV 09/10/22 19:20 30 mg STAT ONE Administration Ketorolac Tromethamine Confirm 09/10/22 19:41 Ketorolac Tromethamine 30 Mg/Ml Inj Administered 09/10/22 19:42 Dose 30 mg .ROUTE .STK-MED ONE Ondansetron HCl 4 mg 09/10/22 19:19 09/10/22 19:50 Ondansetron Hcl 4 Mg/2 Ml Vial IV 09/10/22 19:20 4 mg STAT ONE Administration Ondansetron HCl Confirm 09/10/22 19:41 Ondansetron Hcl 4 Mg/2 Ml Vial Administered 09/10/22 19:42 Dose 4 mg .ROUTE .STK-MED ONE Lab/Rad Data: Laboratory Result Diagrams 09/10/22 19:40 09/10/22 19:40 Laboratory Results 09/10/22 09/10/22 09/10/22 Range/Units Unknown 19:40 19:40 WBC 11.3 H (4.0-10.5) x10^3/uL RBC 4.45 (4.1-5.6) x10^6/uL Hgb 14.7 (12.5-18.0) g/dL Hct 43.7 (42-50) % MCV 98.2 (78-100) fL MCH 33.0 H (26-32) pg MCHC 33.6 (32-36) g/dL RDW 11.3 L (11.5-14.0) % Plt Count 176 (150-450) x10^3/uL MPV 9.5 (7.5-11.0) fL Gran % 83.5 H (36.0-66.0) % Immature Gran % (Auto) 0.4 (0.00-0.4) % Nucleat RBC Rel Count 0.0 (0.00-0.1) % Eos # (Auto) 0.04 (0-0.5) x10^3/uL Immature Gran # (Auto) 0.04 H (0.00-0.03) x10^3u/L Absolute Lymphs (auto) 0.92 L (1.0-4.6) x10^3/uL Absolute Monos (auto) 0.83 (0.0-1.3) x10^3/uL Absolute Nucleated RBC 0.00 (0.00-0.01) x10^3u/L Lymphocytes % 8.1 L (24.0-44.0) % Monocytes % 7.3 (0.0-12.0) % Eosinophils % 0.4 (0.00-5.0) % Basophils % 0.3 (0.0-0.4) % Absolute Granulocytes 9.46 H (1.4-6.9) x10^3/uL Basophils # 0.03 (0-0.4) x10^3/uL Sodium 139 (137-145) mmol/L Potassium 4.2 (3.5-5.1) mmol/L Chloride 105 (98-107) mmol/L Carbon Dioxide 25 (22-30) mmol/L Anion Gap 13.1 (5-15) MEQ/L BUN 25 H (9-20) mg/dL Creatinine 2.36 H (0.66-1.25) mg/dL Estimated GFR 30.1 ML/MIN Glucose 143 H (74-106) mg/dL Calcium 9.3 (8.4-10.2) mg/dL Total Bilirubin 0.50 (0.2-1.3) mg/dL AST 27 (17-59) U/L ALT 33 (0-50) U/L Alkaline Phosphatase 100 (38-126) U/L Serum Total Protein 7.7 (6.3-8.2) g/dL Albumin 4.5 (3.5-5.0) g/dL Lipase 106 (23-300) U/L Urinalys Dipstick Clnc MAIN LAB Urine Color YELLOW (YELLOW) Urine Appearance SLIGHTLY CLOUDY A (CLEAR) Urine pH 7.0 (5-6) Ur Specific [place] 1.020 (1.005-1.025) POC Urine Protein Conf TRACE A (Negative) Urine Ketones SMALL-15 A (NEGATIVE) Urine Nitrite NEGATIVE (NEGATIVE) Urine Bilirubin NEGATIVE (NEGATIVE) Urine Urobilinogen 0.2 (0-1) mg/dL Urine Leukocytes NEGATIVE (NEGATIVE) Urine WBC (Auto) 3-5 A (0-5) /HPF Urine RBC (Auto) 16-25 A (0-2) /HPF U Epithel Cells (Auto) RARE (FEW) /HPF Urine Bacteria (Auto) RARE (NEGATIVE) /HPF Urine RBC SMALL A (0-5) Abhay/ul Urine Mucus (Auto) SLIGHT A (NEGATIVE) /HPF Ur Culture Indicated? YES Urine Glucose NEGATIVE (NEGATIVE) mg/dL - Progress Progress: improved Progress Note: 09/10/22 20:17 differential diagnosis includes kidney stone, compression fracture, infection, UTI, triple AAA - basic labs including: CBC, lipase, CMP, UA - insert IV for fluids, pain meds, nausea control - consider imaging: CT ab/pelvis Patient feels improved with medication. Labs and CT pending. 09/10/22 20:39 Patient's imaging demonstrates left-sided kidney stone 4 mm and 2 mm left UVJ. Mild hydronephrosis and hydroureter. Patient does have an elevation of his creatinine to 2.36. Baseline creatinine of 0.76. No signs of a UTI. From my perspective, patient certainly could be admitted for continued fluid hydration, ensure his creatinine is coming down, continued pain control. I did discuss all this with his and the patient. I did state that patient may need to be transferred because we do not have a urologist in-house. They stated they would rather go home and follow-up tomorrow with a creatinine recheck. I did discuss the risks of worsening kidney failure, worsening creatinine. They state understanding. Patient states he has only drink in 2 cups of coffee and a root beer today. Certainly this could contribute to his KAMRON. Overall, they should have a low threshold to return to the emergency department. They should see their urologist for follow-up in 24 hours. Patient states he already has a urologist that he should not have difficulty getting in. - Departure Clinical Impression: Kidney stone on left side, Elevated serum creatinine, Acute kidney injury Condition: Stable Critical Care Time: No Referrals: GERMAIN RAJPUT MD [Primary Care Provider] - Follow up/PCP as directed Instructions: Kidney Stones in Adults Additional Instructions: You will need to have your creatinine rechecked in 24 hours to make sure that it is not continuing to elevate. This is the kidney function we talked about. Your primary care doctor may order this, your urologist may order this or you may return here. You may return at any time to be admitted to the hospital should you feel worse or have decreased urination, increasing pain, spike a fever.
[2022-09-10] MEDS ORDERED: NORCO 5/325 MG PO ONE (20:47)
[2022-09-10] MEDS ORDERED: NORCO 5/325 MG ONE (20:51)
--- NOTE | 2022-09-11 08:59 | XRAY ---
Indication: Left flank pain. Multiple contiguous axial images obtained through the abdomen and pelvis without contrast using renal stone protocol. Comparison: November 14, 2012 Lung bases again demonstrates mild peripheral subsegmental atelectasis/scarring bilaterally and tiny left lower lobe calcified granuloma. New tiny right infrahilar calcified granuloma. Heart not enlarged with new tiny pericardial effusion/thickening. Urinary bladder demonstrates 2 new micro-calculi adjacent to the left UVJ, largest 5-6 mm. Left ureter is distended up to 1.1 cm along with periureteral stranding, moderate left hydronephrosis, and left renal edema consistent with obstructive uropathy. No free fluid/air. At least 3 right renal and one left renal micro-calculi. Stable 4 mm phlebolith adjacent to the right ureter, approximately L3 level. Stomach is distended with food/fluid. Noncontrasted stomach and bowel loops nonobstructed with normal appendix. Minimal sigmoid diverticulosis without diverticulitis. Contracted gallbladder without gallstones. New splenic calcified granuloma. Remaining liver, gallbladder, pancreas, spleen, adrenal glands, kidneys, ureters, and bladder are unremarkable for noncontrast exam. Worsening moderate scattered aortoiliac calcifications without AAA. Osseous structures intact with progressive worsening L5-S1 degenerative disc disease. Stable small fatty umbilical hernia. New small fatty left inguinal hernia. Impression: 1. 2 new urinary bladder micro-calculi adjacent to the left UVJ. Left-sided hydronephrosis and hydroureter consistent with obstructive uropathy. Additional bilateral renal micro-calculi. 2. New tiny pericardial effusion/thickening. Echocardiogram may yield further information if clinically warranted. 3. New sigmoid diverticulosis without diverticulitis and small fatty left inguinal hernia. 4. Again chronic findings including fatty umbilical hernia, arteriosclerotic disease, L5-S1 degenerative disc disease, and old granulomatous disease. Comment: Preliminary interpretation made by [facility]. No critical discrepancy.
== END 2022-09-10 20:59 | disposition home or self-care (01) ==
LOC: ED 18:48
DX: N13.2 Hydronephrosis with renal and ureteral calculous obstruction (principal); R79.89 Other specified abnormal findings of blood chemistry; N17.9 Acute kidney failure, unspecified; R10.9 Unspecified abdominal pain; R11.0 Nausea; E78.5 Hyperlipidemia, unspecified; Z87.442 Personal history of urinary calculi; Z79.899 Other long term (current) drug therapy; Z28.310 Unvaccinated for COVID-19
CPT/HCPCS: 36415; 74177; 80053; 81015; 83690; 85025; 87086; 96360; 96374; 96375; 99284; J1170; J1885; J2405; A9270-GY